=== PATIENT | male | born 1985 | race African-American/Black ===

== ENCOUNTER 2017-05-07 12:44 | Emergency (ER) | payer MEDICAID ==
[~2017-05-07] VITALS: Ht 175.3 cm; Wt 100.0 kg
[2017-05-07] MEDS ORDERED: ONDANSETRON HCL 4MG/2ML VIAL IV STA (15:10)
[2017-05-07] MEDS ORDERED: KETOROLAC 30MG/ML VIAL IV STA (15:10)
[2017-05-07] MEDS ORDERED: SODIUM CHLORIDE 0.9% 1,000 ML IV ONE (15:10)
[2017-05-07] MEDS ORDERED: ALBUTEROL (0.083%) 2.5MG/3ML NEB HHN ONE (15:15)
[2017-05-07 15:47] LABS: BASOPHILS % 0.5 % (0.0-2.0); HEMATOCRIT. 42.1 % (42.0-52.0); HEMOGLOBIN. 14.6 g/dL (14.0-18.0); LYMPHOCYTES % 68.9 % (20.0-50.0); MEAN CORPUSCULAR HEMOGLOBIN 28.9 pg (28.0-32.0); MEAN CORPUSCULAR VOLUME 83.5 fL (80.0-94.0); MEAN PLATELET VOLUME 8.7 fl (7.4-10.4); MONOCYTES % 4.9 % (2.0-8.0); NEUTROPHILS % 25.7 % (40.0-76.0); PLATELET 85 x1000/uL (130-400); RED BLOOD CELL COUNT 5.04 mill/uL (4.7-6.1); RED CELL DISTRIBUTION WIDTH 13.7 % (11.6-14.6)
[2017-05-07 15:57] LABS: CHLORIDE 88 mEq/L (98-107)
[2017-05-07 16:00] LABS: CARBON DIOXIDE 29 mEq/L (21-32)
[2017-05-07 17:26] VITALS: BP 127/64
== END 2017-05-07 17:28 | disposition home or self-care (01) ==
LOC: ER 14:01
DX: J02.0 Streptococcal pharyngitis (principal); J06.9 Acute upper respiratory infection, unspecified; R19.7 Diarrhea, unspecified
CPT/HCPCS: 36415; 71045; 80053; 85025; 87430; 87804; 94640; 96361; 96374; 96375; 99285; J1885; J2405; J7030; J7611; Z7610